=== PATIENT | female | born 2000 | race Caucasian/White ===

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

== ENCOUNTER 2023-04-16 23:26 | Emergency (ER) | payer MEDICAID, OTHER ==
[~2023-04-16] VITALS: Ht 165.1 cm; Wt 53.5 kg
[2023-04-17] MEDS ORDERED: IBUPROFEN 400 MG TABLET PO ONE (01:00)
[2023-04-17] MEDS ORDERED: IBUPROFEN 400 MG TABLET ONE (01:17)
[2023-04-17 01:22] LABS: PREGNANCY TEST URINE QUAL NEGATIVE (NEGATIVE)
[2023-04-17 02:21] VITALS: BP 122/73; TEMP 98.3; O2SAT 100
== END 2023-04-17 02:22 | disposition home or self-care (01) ==
LOC: ER 23:30
DX: S13.4XXA Sprain of ligaments of cervical spine, initial encounter (principal); F32.A Depression, unspecified; V89.2XXA Person injured in unspecified motor-vehicle accident, traffic, initial encounter; Y93.89 Activity, other specified; Y92.89 Other specified places as the place of occurrence of the external cause; Y99.8 Other external cause status
CPT/HCPCS: 70450-TC; 72125-TC; 84703-TC